=== PATIENT | female | born 1990 | race Two or more races ===

== ENCOUNTER 2025-05-27 18:27 | Inpatient (IN) | payer BC, SELFPAY ==
--- NOTE | ~2025-05-27 | CT_ITS ---
CLINICAL HISTORY: RUQ pain CT abdomen and pelvis with contrast Comparison: None Findings: No consolidation or effusion. The liver is enlarged. The liver appears normal in contour. The gallbladder and solid organs are otherwise within normal limits. No hydronephrosis or hydroureter. No bowel obstruction, pneumoperitoneum, or pneumatosis. Pelvic contents unremarkable. The bladder is minimally distended with fluid, limiting its evaluation. There is borderline bladder wall thickening. Minimal free fluid present within the pelvis. There is dilation of the appendix up to 1.1 cm in diameter of the lower abdomen near the midline, visualized on axial image number 49 of series 3. There is subtle periappendiceal edema. No periappendiceal abscess. No acute fracture visualized. IMPRESSION: 1. Acute appendicitis with dilation of the appendix up to 1.1 cm in diameter at the lower abdomen near the midline. There is subtle periappendiceal edema. No periappendiceal abscess. 2. Mild hepatomegaly. 3. Minimal nonspecific free fluid present within the pelvis, possibly reactive or physiologic in etiology. 4. Borderline bladder wall thickening. This may be related to bladder underdistention. If there is clinical concern for mild cystitis, recommend correlation with urinalysis results for further evaluation. This document has been electronically signed by: Cresencio Mann MD on 05/27/2025 21:20:20
[2025-05-27 18:51] VITALS: BP 130/74; PULSE 60; RESP 16; TEMP 36.7; O2SAT 100; BMI 24.6
--- NOTE | 2025-05-27 18:51 | ED.GENADULT ---
HPI - General Adult General Chief complaint: Abdominal Pain Stated complaint: N/V chills, abd pain Time Seen by Provider: 05/27/25 19:39 Source: patient Limitations: no limitations History of Present Illness ED Provider: Aleyda Cain PA-C HPI narrative: 34-year-old female who is otherwise healthy, with no prior abdominal surgeries, presents with the abdominal pain since this afternoon. Patient states her pain is over mid right abdomen described as a ?squeezing sensation?. The pain is nonradiating and constant. Associated nausea vomiting and loose stool. Denies fever. Denies postprandial symptoms. No sick contacts with similar symptoms. Denies recent travel, hospitalization, or use of antibiotics. Related Data Home Medications ?Medication ?Instructions ?Recorded ?Confirmed sertraline 50 mg tablet 75 mg PO BEDTIME 05/27/25 05/27/25 Allergies Allergy/AdvReac Type Severity Reaction Status Date / Time No Known Allergies Allergy Verified 05/27/25 18:54 PMFSH Social History Social History Unable to assess alcohol history related to: Unknown Smoked in Last 30 Days: No Use of substances other than those prescribed or required for medical reasons: Unknown Advance Directives: No Advance Directives Information Provided: Yes Patient : No Physical Exam ED Vital Signs: Vital Signs - 24 hr 05/27/25 18:51 05/27/25 21:55 Temperature 98.0 F Pulse Rate 60 77 Respiratory Rate 16 16 Blood Pressure 130/74 125/81 Pulse Oximetry 100 99 Oxygen Delivery Method Room Air Room Air BMI result Body Mass Index 24.6 Course Course Course Narrative: This is an RME performed by Yareli Baer CNP: Additional HPI, ROS, PE not included below will be deferred to primary provider. Patient is a 34-year-old female who presents emergency department for evaluation of diffuse upper abdominal pain and vomiting, pain constant in nature over the past 6 hours. Admits to a history of similar symptoms in the past, to have a gallbladder polyp. States that after vomiting the pain typically subsides but has not done so this time. Plan: Serum labs, urinalysis, hCG Consultations Consultation #1: per Dr. Parmar .... He is admitting the patient, no further recommendation Time: 21:42 Medications Administered Discontinued Medications Generic Name Dose Route Start Last Admin Trade Name Freq PRN Reason Stop Dose Admin Ceftriaxone Sodium 2 gm 05/27/25 21:23 05/27/25 21:44 Ceftriaxone Sodium 2 Gm Vial IVPUSH 05/27/25 21:24 2 gm ONCE ONE Administration Dicyclomine HCl 20 mg 05/27/25 19:56 05/27/25 20:08 Dicyclomine Hcl 10 Mg Capsule PO 05/27/25 19:57 20 mg ONCE ONE Administration Sodium Chloride 1,000 mls @ 999 mls/hr 05/27/25 19:45 05/27/25 21:18 Ns IV 05/27/25 20:45 Infused .Q1H1M NABEEL Infusion Metronidazole 500 mg in 100 mls @ 100 mls/hr 05/27/25 21:23 05/27/25 21:53 Flagyl IV 05/27/25 22:22 100 mls/hr ONCE ONE Administration Iohexol 100 ml 05/27/25 20:19 05/27/25 20:20 Iohexol 350 Mg/Ml 100 Ml Infus..Btl IV 05/27/25 20:20 85 ml ONCE ONE Administration Morphine Sulfate 4 mg 05/27/25 21:27 05/27/25 21:52 Morphine Sulfate 4 Mg/Ml Cartridge IVPUSH 05/27/25 21:28 4 mg ONCE ONE Administration Protocol Ondansetron HCl 4 mg 05/27/25 19:40 05/27/25 19:58 Ondansetron Hcl 4 Mg/2 Ml Vial IVPUSH 05/27/25 19:41 4 mg ONCE ONE Administration Sucralfate 1 gm 05/27/25 19:56 05/27/25 20:10 Sucralfate Oral Suspension 1 Gm/10 Ml Oral.Susp PO 05/27/25 19:57 1 gm ONCE ONE Administration Medical Decision Making Medical Decision Making MDM Narrative: 34-year-old female who is otherwise healthy, with no prior abdominal surgeries, presents with the abdominal pain since this afternoon. Patient states her pain is over mid right abdomen described as a ?squeezing sensation?. The pain is nonradiating and constant. Associated nausea vomiting and loose stool. Denies fever. Denies postprandial symptoms. No sick contacts with similar symptoms. Denies recent travel, hospitalization, or use of antibiotics. No chronic issues History: Per patient I have considered the following differential diagnoses: Traveler's diarrhea, sigmoid diverticulitis, appendicitis, C diff, biliary colic, cholecystitis, viral gastroenteritis Plan: The patient has pain seems most prominent right upper to mid abdomen, given right-sided symptoms, thought about underlying biliary pathology, however she does not have any postprandial symptoms in her LFTs are normal. Her torso is short, could be appendicitis versus sigmoid diverticulitis. She has a significant leukocytosis, I am scanning her abdomen. Giving fluid Zofran. This could be simply viral gastroenteritis, although she has no sick contacts with similar symptoms. We will add Carafate and dicyclomine. She has not a risk factors for traveler's diarrhea or C diff. I have independently reviewed the following tests: Labs: Leukocytosis of 17.3, with left shift, not anemic, no electrolyte abnormalities, not , urine not infected CT abdomen and pelvis:IMPRESSION: 1. Acute appendicitis with dilation of the appendix up to 1.1 cm in diameter at the lower abdomen near the midline. There is subtle periappendiceal edema. No periappendiceal abscess. 2. Mild hepatomegaly. 3. Minimal nonspecific free fluid present within the pelvis, possibly reactive or physiologic in etiology. 4. Borderline bladder wall thickening. This may be related to bladder underdistention. If there is clinical concern for mild cystitis, recommend correlation with urinalysis results for further evaluation. Lab Data 05/27/25 19:06 05/27/25 19:06 Labs: Lab Results 05/27/25 05/27/25 Range/Units 19:06 19:49 WBC 17.3 H (4.8-10.8) X10*3/uL RBC 5.69 H (4.20-5.50) X10*6/uL Hgb 12.2 (12.0-16.0) g/dl Hct 37.6 (37.0-47.0) % MCV 66.1 L (80.0-98.0) fL MCH 21.4 L (27.0-33.0) pg MCHC 32.4 (31.0-35.0) g/dl RDW 15.6 (11.0-16.0) % Plt Count 272 (160-400) X10*3/uL MPV Not Reportable Immature Gran % (Auto) Cancelled Neut % (Auto) Cancelled Lymph % (Auto) Cancelled [place] % (Auto) Cancelled Eos % (Auto) Cancelled Baso % (Auto) Cancelled Lymph # (Auto) Cancelled [place] # (Auto) Cancelled Eos # (Auto) Cancelled Baso # (Auto) Cancelled Abs Immat Gran (auto) Cancelled Absolute Neuts (auto) Cancelled Absolute Nucleated RBC 0.000 (0.0-0.012) X10*3/uL Nucleated RBC % (auto) 0.0 (0.0-0.2) /100WBC Neutrophils % (Manual) 92 H (45-73) % Band Neutrophils % 5 (3-5) % Lymphocytes % (Manual) 1 L (20-40) % Monocytes % (Manual) 2 (2-11) % Abs Neuts (Manual) 16.8 H (2.0-8.3) X10*3/uL Lymphocytes # (Manual) 0.2 L (1.2-4.9) X10*3/uL Monocytes # (Manual) 0.3 (0.1-1.2) X10*3/uL Platelet Estimate NORMAL (NORMAL) Plt Morphology Comment NORMAL RBC Morphology NOTED Microcytosis 1+ (5-14) /OIF Schistocytes 1+ (0-2) /OIF Sodium 138 (135-145) mmol/L Potassium 4.5 (3.3-5.1) mmol/L Chloride 106 (96-108) mmol/L Carbon Dioxide 21 L (22-29) mmol/L Anion Gap 16 (12-20) BUN 13 (9-16) mg/dL Creatinine 0.58 (0.5-1.4) mg/dL Estim Creat Clear Calc 112.7 Estimated GFR > 60 Random Glucose 125 H (60-115) mg/dL Calcium 9.5 (8.4-10.2) mg/dL Total Bilirubin 0.4 (0.0-1.0) mg/dL AST 36 H (5-31) U/L ALT 21 (0-31) U/L Alkaline Phosphatase 68 (39-117) U/L Total Protein 8.2 H (6.5-8.0) g/dL Albumin 4.3 (3.5-5.0) g/dL Lipase 11 (8-78) U/L Beta HCG, Quant < 2 mIU/mL Urine Color Yellow Urine Appearance Cloudy Urine pH 8.0 (5.0-9.0) Ur Specific [place] >= 1.030 H (1.005-1.025) Urine Protein 30 (1+) H (Neg-Trace) mg/dL Urine Glucose (UA) Negative (Negative) mg/dL Urine Ketones 80 (Negative) mg/dL Urine Blood Negative (Negative) Urine Nitrite Negative (Negative) Ur Leukocyte Esterase Negative (Negative) Urine RBC 11-20 H (0-2) /HPF Urine WBC 0-5 (0-5) /HPF Ur Squamous Epith Cells 3-5 (0-2) /HPF Urine Bacteria 2+ (None Seen) Hyaline Casts 6-10 (0-2) /LPF Critical Care Time Critical Care Time Critical Care Time: Yes Total Critical Care Time: 30 Attestation: Trip Cain PA-C have personally performed 30 minutes of critical care time not including lines and procedures; IV analgesia and antiemetic, appendicitis, IV antibiotic therapy, surgical consult Discharge Plan Discharge Clinical Impression: Acute appendicitis Patient Disposition: Admitted As Inpatient
[2025-05-27 19:17] LABS: Hematocrit 37.6 % (37.0-47.0); Hemoglobin 12.2 g/dl (12.0-16.0); Mean Corpuscular HGB Conc 32.4 g/dl (31.0-35.0); Mean Corpuscular Hemoglobin 21.4 pg (27.0-33.0); Mean Corpuscular Volume 66.1 fL (80.0-98.0); NRBC Abs Auto 0.000 X10*3/uL (0.0-0.012); NRBC Pct Auto 0.0 /100WBC (0.0-0.2); PLT CLUMP 1; Red Blood Count 5.69 X10*6/uL (4.20-5.50)
[2025-05-27 19:18] LABS: WBC ABN SCTR FOR CBC 1
[2025-05-27 19:27] LABS: Alanine Aminotransferase 21 U/L (0-31); Albumin Level 4.3 g/dL (3.5-5.0); Alkaline Phosphatase 68 U/L (39-117); Anion Gap 16 (12-20); Aspartate Amino Transferase 36 U/L (5-31); Blood Urea Nitrogen 13 mg/dL (9-16); Calcium 9.5 mg/dL (8.4-10.2); Carbon Dioxide 21 mmol/L (22-29); Chloride 106 mmol/L (96-108); Creatinine Clr Calc Pharmacy 112.7; Estimated Glomerular Filt Rate > 60; Lipase 11 U/L (8-78); Potassium 4.5 mmol/L (3.3-5.1); Sodium 138 mmol/L (135-145); Total Protein 8.2 g/dL (6.5-8.0)
[2025-05-27 19:38] LABS: Band Neutrophils Percent 5 % (3-5); Lymphocytes Percent Manual 1 % (20-40); Monocytes Percent Manual 2 % (2-11); Neutrophils Percent Manual 92 % (45-73); RBC Morphology NOTED; Schistocytes 1+ (0-2) /OIF
[2025-05-27 19:39] LABS: Microcytosis 1+ (5-14) /OIF
--- OUTSIDE RECORDS SUMMARY | 2025-05-27 19:42 | XMS_ITS | Clinical Summary ---
Author Organization [facility] Address [address] [place] [phone] Phone Care Team Providers Care Insurance Verification Specialist Name Role Phone Dilan Choi MD Primary Care Provider [phone] Dilan Choi MD Unavailable [phone] Allergies No known active allergies Medications levonorgestrel-eth inyl estradiol (AVIANE,ALESSE,LES MAXIMO) 0.1-0.02 mg per tabletIndications: Counseling for control, oral contraceptives Take 1 tablet by mouth daily. 84 tablet 3 4 Active triamcinolone acetonide 0.1 % creamIndications:I ntrinsic atopic dermatitis Apply topically 2 (two) times a day. 60 g 2 4 Active clonazePAM (KLONOPIN) 0.5 MG disintegrating tabletIndications: Recurrent major depressive disorder, in full remission Take 1 tablet (0.5 mg total) by mouth 2 (two) times a day as needed for anxiety. 15 tablet 5 Active sertraline (ZOLOFT) 50 MG tabletIndications: Recurrent major depressive disorder, in full remission Take 1 tablet (50 mg total) by mouth daily. 90 tablet 3 5 Active Active Problems Problem Noted Date Diagnosed Date Polyp of gallbladder 09/27/2024 Overview (04/19/2025): Stable, ultrasound March 2025. No further testing recommended. Assessment & Plan (04/19/2025 1:28 PM EDT): Repeat ultrasound is stable. No further testing needed for the polyp. We will check her lipids and blood sugar before her preventive health visit in 6 to 9 months to look for possible causes of fatty liver. Recent LFTs were normal which is reassuring. Beta thalassemia minor 08/23/2024 Assessment & Plan (08/23/2024 5:15 PM EDT): If ever plans to conceive, should have pre-conception counseling. Intrinsic atopic dermatitis 11/09/2023 Assessment & Plan (04/19/2025 1:29 PM EDT): Doing well, continue triamcinolone as needed Assessment & Plan (08/23/2024 5:15 PM EDT): Try avoiding friction to her forearms and use triamcinolone more frequently. Assessment & Plan (02/18/2024 4:07 PM EDT): Well-controlled, continue current medication. Assessment & Plan (12/21/2023 12:24 PM EST): Better with triamcinolone, continue using as needed. Assessment & Plan (11/09/2023 10:23 AM EST): She has done well with triamcinolone in the past. Skin care was reviewed. Use triamcinolone as needed. Counseling for control, oral contraceptive s 11/09/2023 Assessment & Plan (11/09/2023 10:23 AM EST): Restart oral contraceptive. She understands proper use and side effects. She also needs cervical cancer screening and she will schedule appointment with DEMOLITION EXPERT. Recurrent major depressive disorder, in full rem ission 11/09/2023 Overview (11/09/2023): She has done well in the past with sertraline. Infrequently uses clonazepam for anxiety. Assessment & Plan (04/19/2025 1:29 PM EDT): Doing well with current medication. Continue the same. Assessment & Plan (08/23/2024 5:14 PM EDT): Doing very well, continue current medication Assessment & Plan (02/18/2024 4:07 PM EDT): Well-controlled, continue current medication Assessment & Plan (12/21/2023 12:24 PM EST): She is doing much better since increasing dose of sertraline. 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 Will increase dose a little more and see if this improves her sleep. Assessment & Plan (11/09/2023 10:25 AM EST): Restart sertraline, start with 25 mg daily for 1 to 2 weeks then increase to 50 mg daily. She can continue using clonazepam infrequently. She understands the risk of addiction, tolerance, and the abuse potential. I also reminded her of the potential for overdose. Resolved Problems Problem Noted Date Diagnosed Date Resolved Date Nausea vomiting and diarrhea 07/26/2024 04/19/2025 Assessment & Plan (08/23/2024 5:14 PM EDT): Doing much better. May have been viral. Gallbladder disease is possible. If symptoms recur, she should proceed with abdominal ultrasound. Assessment & Plan (07/26/2024 2:31 PM EDT): Two episodes of diarrhea, nausea and vomiting over the past 3 weeks. I asked her to work on reducing her intake of fatty foods, processed foods, and fried products. Ensure adequate dietary fiber and water intake. We will check labs today. I agreed to check a RUQ ultrasound at her request. She has a follow up appointment with Dr. Rosario on 08/23 and should track her symptoms until that time. Call with another episode. To the ER with intractable vomiting and inability to tolerate sips of fluids. She agrees. Encounters Date Type Department Care Team Description 04/19/2025 1:15 PM EDT Office Visit [address] [place] [address] Dilan Choi MD Recurrent major depressive disorder, in full remission (Primary Dx); Polyp of gallbladder; Encounter for preventive health examination; Intrinsic atopic dermatitis 04/12/2025 [address]ill [facility] [address] [place] [address] Dilan Choi MD Medication Refill 03/26/2025 8:38 AM EDT - 03/26/2025 11:59 PM EDT Hospital Encounter [facility] [address] [place] [address] Dilan Choi MD Discharge Disposition: Home or Self Care from Last 3 Months Immunizations Immunization Administration Dates Next Due HPV, unspecified formulation 04/13/2008 Influenza, Unspecified Formulation 08/25/2011 Tdap 11/02/2011 Family History Medical History Relation Comments No Known Problems Brother No Known Problems Father Diabetes Mother Relation Status Comments Brother Father Mother Paternal Grandmother Social History Tobacco Use Types Packs/Day Years Used Date Smoking Tobacco: Never Passive Smoke Exposure: Never Smokeless Tobacco: Never Tobacco Cessation:Counseling Given: Not Answered Alcohol Use Standard Drinks/Week Comments Yes 2 (1 standard drink = 0.6 oz pur e alcohol) Education Answer Date Recorded Are you interested in more education? Not on kristina e 10/08/2023 Are you concerned about learning? Not on file 10/08/2023 No 10/08/2023 No 10/08/2023 Digital Access Answer Date Recorded No 10/08/2023 No 10/08/2023 Reliable internet access at home? Not on file 10/08/2023 Device with a working camera? 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 [employer] Not on file Not on file No t on file Last Filed Vital Signs Vital Sign Reading Time Taken Comments Blood Pressure 116/75 04/19/2025 1:02 PM EDT Pulse 77 04/19/2025 1:02 PM EDT Temperature 36.7 C (98 F) 04/19/2025 1:02 PM EDT Respiratory Rate - - Oxygen Saturation 100% 04/19/2025 1:02 PM EDT Inhaled Oxygen Concentration - - Weight 58.6 kg (129 lb 3.2 oz) 04/19/2025 1:02 P M EDT Height 156.2 cm (5' 1.5 ) 04/19/2025 1:02 PM EDT Body Mass Index 24.02 04/19/2025 1:02 PM EDT Plan of Treatment Upcoming Encounters Date Type Department Care Team (Late st Contact Info) Description 12/12/2025 1:00 PM EST Office Visit [facility] [address] [place] [address] [place] [address] Dilan Choi MD [address] [facility] [place] [address] [email or web address] Health Maintenance Due Date Last Done Comments DEPRESSION SCREENING 2002 Adult Td,Tdap Booster 11/02/2021 11/02/2011 COVID-19 VACCINE (3 - 2023-2 5 season) 2024 03/09/2021, 02/09/2021 PAP SMEAR 11/16/2026 11/16/2023 SMOKING STATUS SCREENING (On ce After 26 Yrs) Completed 04/19/2025 HEPATITIS A VACCINES Aged Out No long er eligible based on patient's age to complete this topic HIB VACCINES Aged Out No longer eligi ble based on patient's age to complete this topic MENINGOCOCCAL VACCINES (ACWY) Aged Out No longer eligible based on patient's age to complete this topic MENINGOCOCCAL VACCINES (B) Aged Out N o longer eligible based on patient's age to complete this topic PNEUMOCOCCAL VACCINES (0-49 years) Aged Out No longer eligible b ased on patient's age to complete this topic Medical Devices Not on file Procedures Procedure Name Priority Date/Time Associated Diagnosis Comments US ABDOMEN LIMITED RIGHT UPPER QUADRANT Routine 03/26/2025 9:23 AM EDT Polyp of gallbladder PAP TEST Routine 11/16/2023 12:00 AM EST from Last 3 Months or Most Recently Relevant to Health Maintenance Results * US ABDOMEN LIMITED RIGHT UPPER QUADRANT (03/26/2025 9:23 AM EDT) Anatomical Region Laterality Modality Abdomen Ultrasound 03/26/2025 11:2 6 AM EDT Impressions 03/26/2025 11:29 AM EDT Redemonstration of a 3 mm gallbladder polyp. No further imaging follow-up recommended per current guidelines (Radiology 202; 305:277-289). Increased echogenicity of the hepatic parenchyma. This is a nonspecific finding indicating diffuse hepatocellular disease and limiting the sensitivity of this exam. In the correct clinical scenario, this commonly represents fatty liver. Within the limitations of this study, there is no sonographic evidence for focal hepatic lesion. Narrative 03/26/2025 11:29 AM EDT US ABDOMEN LIMITED RIGHT UPPER QUADRANT Referring clinician's provided indication for this examination in [facility]: polyp of gallbladder TECHNIQUE: US Abdominal limited right upper quadrant. COMPARISON: US ABDOMEN LIMITED RIGHT UPPER QUADRANT FINDINGS: Liver: Normal. There is increased echogenicity of the hepatic parenchyma. No focal hepatic lesions demonstrated sonographically. Main Portal Vein: Patent with normal direction of flow. Gallbladder: There is redemonstration of a non-shadowing echogenic focus adjacent to the gallbladder wall measuring 3 mm. No gallstones or gallbladder wall thickening. Beyer's Sign: Negative. Biliary: No intrahepatic or extrahepatic biliary ductal dilatation. The common bile duct measures 2 mm. Procedure Note Ale Anand MD - 03/26/2025 US ABDOMEN LIMITED RIGHT UPPER QUADRANT Referring clinician's provided indication for this examination in [facility]:polyp of gallbladder TECHNIQUE: US Abdominal limited right upper quadrant. COMPARISON: US ABDOMEN LIMITED RIGHT UPPER QUADRANT FINDINGS: Liver: Normal. There is increased echogenicity of the hepatic parenchyma.No focal hepatic lesions demonstrated sonographically. Main Portal Vein: Patent with normal direction of flow. Gallbladder: There is redemonstration of a non-shadowing echogenic focusadjacent to the gallbladder wall measuring 3 mm. No gallstones orgallbladder wall thickening. Beyer's Sign: Negative. Biliary: No intrahepatic or extrahepatic biliary ductal dilatation. The common bile duct measures 2 mm. IMPRESSION: Redemonstration of a 3 mm gallbladder polyp. No further imaging follow- uprecommended per current guidelines (Radiology 202; 305:277-289). Increased echogenicity of the hepatic parenchyma. This is a nonspecificfinding indicating diffuse hepatocellular disease and limiting thesensitivity of this exam. In the correct clinical scenario, this commonlyrepresents fatty liver. Within the limitations of this study, there is nosonographic evidence for focal hepatic lesion. us Dilan Choi MD IMG US ABDOMEN Final Resu lt * Pap Test (11/16/2023 12:00 AM EST) 11/16/2023 11/17/2023 9:1 4 AM EST Narrative SEE NARRATIVE - 11/19/2023 3:13 [place] [address] Dog Handler Or Trainer: Paula Marinelli MD DEMOLITION EXPERT Cytology Report FINAL DIAGNOSIS A. PAP SMEAR (SUREPATH) CE: SPECIMEN ADEQUACY: Satisfactory for evaluation; transformation zone absent/insufficient. INTERPRETATION: NEGATIVE FOR INTRAEPITHELIAL LESION OR MALIGNANCY. Electronically Signed Out By: JOEY Valenzuela(ASCP) The Pap test is a screening test primarily for squamous cancers and precursors and has associated false-negative and false-positive results. New technologies such as liquid-based preparations may decrease but will not eliminate all false-negative results. Regular sampling and follow-up of unexplained clinical signs and symptoms are recommended to minimize false negative results. PROCEDURES/ADDENDA HPV Testing (Requested) Ordered Date: 11/17/2023 A. PAP SMEAR (SUREPATH) CE: Human Papilloma Virus Test NEGATIVE for high-risk Human Papilloma Virus types 16, 18, 45 and the Other high risk probe set (Includes 31, 33, 35, 39, 51, 52, 56, 58, 59, 66, 68) Note: Testing performed by [employer] Onclarity HR-HPV analysis. Clinical correlation is advised. This HPV test was performed at [facility], [address] [place] [address]. This test has been FDA approved for SurePath cervical cytology specimens. The accuracy and precision of this test for all other specimen sources has been verified in the Cytopathology Laboratory of the [facility] and has not been cleared or approved by the U.S. Food and Drug Administration. Clinical correlation is advised. CLINICAL HISTORY Date of Last Menstrual Period: 10-31-2023 Contraceptive History: BCPs Other Clinical Conditions: Screening Pap SPECIMEN SOURCE A: PAP SMEAR (SUREPATH) CE Patient Name: YELITZA GILLETTE : 1990 (Age: 33) Sex: F Institution: [facility] Location: [facility] Date of Collection: 11/16/2023 Date of Reported: 11/19/2023 15:13 Results to: Angle Patino MD Angle Patino MD CYTOLOGY ORDERABLES Final Result SEE NARRATIVE from Last 3 Months or Most Recently Relevant to Health Maintenance Insurance [facility] OUT OF STATE PPO BLUE [employer] OUT OF STATE PPO BLUE [employer]OSS OUT OF STATE PPO BLUE [employer]OSS OUT OF STATE PPO [facility] STATE PPO Care Teams Insurance Verification Specialist Relationship Specialty Start Date End Date Dilan Choi MD [address] [place] [address], [address] [place] [address] PCP - General Internal Medicine 12/21/23 Dilan Choi MD [address] [place] [address], [address] [place] [address] Insurance Assigned Provider 01/29/24 Additional Source Comments The information contained in this document represents components of the legal health record. It is not the complete legal health record.[facility]
[2025-05-27 19:52] LABS: Lymphocytes Absolute Manual 0.2 X10*3/uL (1.2-4.9); Monocytes Absolute Manual 0.3 X10*3/uL (0.1-1.2); Neutrophils Absolute Manual 16.8 X10*3/uL (2.0-8.3); Platelet Count 272 X10*3/uL (160-400); White Blood Count 17.3 X10*3/uL (4.8-10.8)
--- NOTE | 2025-05-27 19:57 | PC.NURSE ---
UA obtained. IV established, medicated per DEC. DANIEL at bedside for primary eval.
[2025-05-27 20:06] LABS: Appearance Urine Cloudy; Glucose Urine UA Negative (Negative); PH 8.0 (5.0-9.0); Specific Gravity - Urine >= 1.030 (1.005-1.025); UMIC TRIGGER UACC YES
[2025-05-27] MEDS: Sucralfate Oral Suspension 1 GM/10 ML ORAL.SUSP PO (20:10)
--- NOTE | 2025-05-27 20:15 | PC.NURSE ---
Off to CT.
[2025-05-27] MEDS: iohexoL 350 MG/ML 100 ML INFUS..BTL IV (20:20)
--- NOTE | 2025-05-27 21:30 | PC.NURSE ---
DANIEL at bedside discussing CT results.
--- NOTE | 2025-05-27 21:43 | PC.NURSE ---
No Blood Culture orders per provider Payton CAMPBELL.
[2025-05-27] MEDS: metroNIDAZOLE/NS 500 MG/100 ML PIGGYBACK 100 MG IV (21:53)
[2025-05-27 21:55] VITALS: BP 125/81; PULSE 77; RESP 16; O2SAT 99
--- NOTE | 2025-05-27 21:57 | PC.NURSE ---
Medicated per DEC. Pt resting in bed at this time.
--- NOTE | 2025-05-27 22:00 | PC.NURSE ---
2200 Zosyn retimed to 2300 by pharmacy as Flagyl was infusing at this time.
[2025-05-27 23:00] VITALS: BP 120/66; PULSE 62; RESP 16; O2SAT 99
--- NOTE | 2025-05-27 23:00 | PC.NURSE ---
Addendum entered by Susan Khanna RN 05/27/25 23:20: 2nd IV line established. IVF infusing per MAR. Original Note: Medicated per MAR. Pt reporting 1/10 pain at this time.
[2025-05-27] MEDS: Dextrose 5 % and Lactated Ring 1,000 ML 125 ML IVCONT (23:20)
[2025-05-27 23:22] VITALS: BP 101/63; PULSE 68; RESP 16; TEMP 36.9; O2SAT 97
[2025-05-28] VITALS (14 sets, daily range): BP systolic 98–118; BP diastolic 54–71; PULSE 63–88; RESP 12–20; TEMP 36.6–37.7; O2SAT 95–100
[2025-05-28] MEDS: Dextrose 5 % and Lactated Ring 1,000 ML 125 ML IVCONT ×2 (06:59→17:52)
[2025-05-28] MEDS: 0.9 % Sodium Chloride Flush 3 ML SYRINGE IVFLUSH ×2 (07:00→17:52)
--- NOTE | 2025-05-28 07:32 | P.HPGS_ITS ---
History of Present Illness History of Present Illness Date of Service: 05/28/25 Chief complaint: acute appendicitis Narrative: Yelitza Tim is a 34 year old female presenting with complaints of abdominal pain in the right lower quadrant and periumbilical region. Pain was associated with nausea and vomiting which seemed to increase the pain. She previously had similar pain approximately 6 months ago which resolved after vomiting. She denies fever or chills but does report a decreased appetite. There have been no changes in her bowel habits. Her past medical history is significant only for anxiety. She denies any previous abdominal surgeries. She presented to the emergency department and was noted to have an elevated WBC. CT abdomen and pelvis revealed a dilated appendix which traveled to the midline abdomen with inflammatory changes surrounding. There was no free air. There is a small collection of free fluid. Review of Systems Review of Systems: Yes all other systems are reviewed and are negative [facility] Social History Social History Unable to assess alcohol history related to: Unknown Patient Tobacco Use Status: Never used Tobacco Smoked in Last 30 Days: No Use of substances other than those prescribed or required for medical reasons: Unknown Advance Directives: No Advance Directives Information Provided: Yes Nutrition Risks: No Nutritional Risk Patient : No Meds Allergies Allergy/AdvReac Type Severity Reaction Status Date / Time No Known Allergies Allergy Verified 05/27/25 18:54 Active Medications: Current Medications Calcium Carbonate (Calcium Carbonate 750 Mg Tab.Chew) 750 mg PO Q4H PRN PRN Reason: Heartburn Hydromorphone HCl (Hydromorphone Hcl 0.5 Mg/0.5 Ml Syringe) 0.5 mg IVPUSH Q3H PRN; Protocol PRN Reason: Pain, Severe (Pain Scale 7-10) Acetaminophen (Ofirmev) 1,000 mg in 100 mls @ 400 mls/hr IV Q6H PRN PRN Reason: Pain, Mild (Pain Scale 1-3) Last Infusion: 05/27/25 23:06 Dose: Infused Dextrose/Lactated Ringer's (D5lr) 1,000 mls @ 125 mls/hr IVCONT .Q8H [facility] Last Admin: 05/28/25 06:59 Dose: 125 mls/hr Piperacillin Sod/Tazobactam (Sod 3.375 gm/ Sodium Chloride) 50 mls @ 100 mls/hr IV Q6H [facility] Last Infusion: 05/28/25 06:25 Dose: Infused Magnesium Hydroxide (Milk Of Magnesia 30 Ml Oral.Susp) 30 ml PO DAILY PRN PRN Reason: Constipation Melatonin (Melatonin 3 Mg Tablet) 6 mg PO BEDTIME PRN PRN Reason: Insomnia Ondansetron HCl (Ondansetron Hcl 4 Mg/2 Ml Vial) 4 mg IVPUSH QID PRN PRN Reason: Nausea Last Admin: 05/27/25 22:51 Dose: 4 mg Oxycodone HCl (Oxycodone Hcl Immed Release 5 Mg Tablet) 5 mg PO Q6H PRN PRN Reason: Pain, Moderate(Pain Scale 4-6) Sodium Chloride (0.9 % Sodium Chloride Flush 3 Ml Syringe) 3 ml IVFLUSH QSHIFT [facility] Last Admin: 05/28/25 07:00 Dose: 3 ml Home Medications ?Medication ?Instructions ?Recorded ?Confirmed ?Last Taken ?Type sertraline 50 mg tablet 75 mg PO BEDTIME 05/27/2505/21/25 History Physical Exam Vital Signs: Vital Signs: Last Vital Signs Temp 98.5 F 05/28/25 04:01 Pulse 78 05/28/25 07:01 Resp 16 05/28/25 07:01 BP 101/60 05/28/25 07:01 Pulse Ox 100 05/28/25 07:01 O2 Del Method Room Air 05/28/25 07:01 BMI result Body Mass Index 24.6 Const: General: cooperative and no acute distress Nutritional Appearance: well nourished Orientation/consciousness: patient oriented x3 Limitations: no limitations HEENT: Head: Yes normocephalic and Yes atraumatic Ears: hearing grossly normal bilaterally Resp: Effort & Inspection: normal respiratory effort, no audible wheezes, no cough and no respiratory distress Cardio: Jugular venous distension: no JVD GI: Other: Tender in the right lower quadrant and epigastrium without rebound, guarding or rigidity. No abdominal scars or hernias appreciated. Inspection: Yes normal to inspection Skin: Other: Warm, dry, no rash Neuro: General: patient oriented x3 Extrem: General: Yes no clubbing, cyanosis or edema Results Results Labs: Short CBC 05/27/25 Range/Units 19:06 WBC 17.3 H (4.8-10.8) X10*3/uL Hgb 12.2 (12.0-16.0) g/dl Hct 37.6 (37.0-47.0) % Plt Count 272 (160-400) X10*3/uL BMP 05/27/25 19:06 Sodium 138 Potassium 4.5 Chloride 106 Carbon Dioxide 21 L BUN 13 Creatinine 0.58 Calcium 9.5 Liver Function 05/27/25 Range/Units 19:06 Total Bilirubin 0.4 (0.0-1.0) mg/dL AST 36 H (5-31) U/L ALT 21 (0-31) U/L Alkaline Phosphatase 68 (39-117) U/L Albumin 4.3 (3.5-5.0) g/dL Urine 05/27/25 Range/Units 19:49 Urine Color Yellow Urine Appearance Cloudy Urine pH 8.0 (5.0-9.0) Ur Specific [place] >= 1.030 H (1.005-1.025) Urine Protein 30 (1+) H (Neg-Trace) mg/dL Urine Glucose (UA) Negative (Negative) mg/dL Assessment and Plan (1) Acute appendicitis: Qualifiers: Acute appendicitis type: with localized peritonitis Appendicitis gangrene presence: without gangrene Appendicitis perforation presence: without perforation Appendicitis abscess presence: without abscess Qualified Code(s): K35.30 - Acute appendicitis with localized peritonitis, without perforation or gangrene Status: Acute Plan 34-year-old female patient presenting with complaints of right lower quadrant and periumbilical abdominal pain found on workup to have acute appendicitis. We discussed options including nonoperative management with IV antibiotics verses proceeding to a laparoscopic appendectomy. After discussion of the procedure, risks, and alternatives, she consents to a laparoscopic or possible open appendectomy. She has been added onto the operative schedule for today. Quality Stroke Does the patient have a stroke diagnosis?: No VTE Prior VTE?: No VTE Risk Level:: Surgical - low VTE Device Contraindication: N/A - Device Ordered VTE Drug Contraindication: Treatment Not Indicated Procedures Date of Service Date of Service: 05/28/25
--- NOTE | 2025-05-28 07:34 | PHA.MEDREC ---
Pharmacy Consult ? Medication Reconciliation Pharmacy has completed the medication reconciliation. Reviewed med rec done by nursing. matches claims
--- NOTE | 2025-05-28 07:42 | PC.NURSE ---
plan is for patient to have surgery today. She reports no pain at rest but is tender on palpation. no nausea
--- NOTE | 2025-05-28 08:42 | MHC.CM.PN ---
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 NO DME OR VNA SERVICES IN THE HOME.CURRENTLY RESIDES WITH MOTHER, WHO HE DOES NOT WISH TO ASSIGN HCP AGENT. NO HCP ON FILE DESPITE NOTIFICATION THAT ONE IS IN EXPANSE. PATIENT DOES NOT WISH TO ASSIGN AGENT AT THIS TIME.HE IS AWARE OF PLANS FOR O.R. TODAY. CM FOLLOWING FOR ANY DC NEEDS.
--- NOTE | 2025-05-28 09:11 | PC.NURSE ---
report was given to [facility], they anticipate afternoon for procedure, patient to remain NPO
--- NOTE | 2025-05-28 09:13 | MHC.CM.PN ---
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 NO DME OR VNA SERVICES SHE ASSIGNS A NEW HCP. COPY UPLOADED INTO [employer] AND ONE PLACED IN CHART. SHE ANTICIPATES NO NEEDS AT [place]. BROTHER WILL PROVIDE TRANSPORTATION HOME. CM FOLLOWING.
--- NOTE | 2025-05-28 11:25 | PC.NURSE ---
Assumed care of this patient at this time upon transfer to ED overflow. Plan for patient to go to OR today, no time yet. NPO IVF infusing, patient denies pain at this time.
--- NOTE | 2025-05-28 12:28 | MHC.EDTECH ---
Pt brought over from ED24 to OF2. Pt was able to independently ambulate from ER stretcher to hospital bed, vitals obtained, call cagle within reach.
--- NOTE | 2025-05-28 12:34 | PC.NURSE ---
Patient en route to OR at this time
--- NOTE | 2025-05-28 13:51 | P.CONAN_ITS ---
HPI - Anesthesia Eval Consult details Narrative: jose sagastume [facility] Active Problems Active Problems: All Active Problems Acute appendicitis (Acute) Family History Family history of problems with anesthesia: No Surgical History History of Problems with Anesthesia: No Social History Social History Unable to assess alcohol history related to: Unknown Patient Tobacco Use Status: Never used Tobacco Smoked in Last 30 Days: No Use of substances other than those prescribed or required for medical reasons: No Have you been hit, kicked, punched, or otherwise hurt by someone within the past year? If so, by whom?: No Are you DNR?: No Advance Directives: No Advance Directives Information Provided: Yes Nutrition Risks: No Nutritional Risk Patient : No (hcg neg) service: No Meds Allergies Allergy/AdvReac Type Severity Reaction Status Date / Time No Known Allergies Allergy Verified 05/28/25 12:50 Active Medications: Current Medications Calcium Carbonate (Calcium Carbonate 750 Mg Tab.Chew) 750 mg PO Q4H PRN PRN Reason: Heartburn Hydromorphone HCl (Hydromorphone Hcl 0.5 Mg/0.5 Ml Syringe) 0.5 mg IVPUSH Q3H PRN; Protocol PRN Reason: Pain, Severe (Pain Scale 7-10) Acetaminophen (Ofirmev) 1,000 mg in 100 mls @ 400 mls/hr IV Q6H PRN PRN Reason: Pain, Mild (Pain Scale 1-3) Last Infusion: 05/28/25 10:05 Dose: Infused Dextrose/Lactated Ringer's (D5lr) 1,000 mls @ 125 mls/hr IVCONT .Q8H [facility] Last Admin: 05/28/25 06:59 Dose: 125 mls/hr Piperacillin Sod/Tazobactam (Sod 3.375 gm/ Sodium Chloride) 50 mls @ 100 mls/hr IV Q6H [facility] Last Infusion: 05/28/25 11:45 Dose: Infused Magnesium Hydroxide (Milk Of Magnesia 30 Ml Oral.Susp) 30 ml PO DAILY PRN PRN Reason: Constipation Melatonin (Melatonin 3 Mg Tablet) 6 mg PO BEDTIME PRN PRN Reason: Insomnia Ondansetron HCl (Ondansetron Hcl 4 Mg/2 Ml Vial) 4 mg IVPUSH QID PRN PRN Reason: Nausea Last Admin: 05/27/25 22:51 Dose: 4 mg Oxycodone HCl (Oxycodone Hcl Immed Release 5 Mg Tablet) 5 mg PO Q6H PRN PRN Reason: Pain, Moderate(Pain Scale 4-6) Sodium Chloride (0.9 % Sodium Chloride Flush 3 Ml Syringe) 3 ml IVFLUSH QSHIFT [facility] Last Admin: 05/28/25 07:00 Dose: 3 ml Home Medications ?Medication ?Instructions ?Recorded ?Confirmed ?Last Taken ?Type sertraline 50 mg tablet 75 mg PO BEDTIME 05/27/2505/21/25 History Exam Height,Weight and Vital Signs: Height 5 ft 1 in Weight 58.967 kg Last Vital Signs Temp 99.8 F 05/28/25 12:50 Pulse 73 05/28/25 12:50 Resp 16 05/28/25 12:50 BP 104/69 05/28/25 12:50 Pulse Ox 99 05/28/25 12:50 O2 Del Method Room Air 05/28/25 12:50 Pertinent Lab Results Pertinent Lab Results: Laboratory Tests 05/27/25 05/27/25 19:06 19:49 WBC 17.3 H RBC 5.69 H Hgb 12.2 Hct 37.6 MCV 66.1 L MCH 21.4 L MCHC 32.4 RDW 15.6 Plt Count 272 MPV Not Reportable Immature Gran % (Auto) Cancelled Neut % (Auto) Cancelled Lymph % (Auto) Cancelled [place] % (Auto) Cancelled Eos % (Auto) Cancelled Baso % (Auto) Cancelled Lymph # (Auto) Cancelled [place] # (Auto) Cancelled Eos # (Auto) Cancelled Baso # (Auto) Cancelled Abs Immat Gran (auto) Cancelled Absolute Neuts (auto) Cancelled Absolute Nucleated RBC 0.000 Nucleated RBC % (auto) 0.0 Neutrophils % (Manual) 92 H Band Neutrophils % 5 Lymphocytes % (Manual) 1 L Monocytes % (Manual) 2 Abs Neuts (Manual) 16.8 H Lymphocytes # (Manual) 0.2 L Monocytes # (Manual) 0.3 Platelet Estimate NORMAL Plt Morphology Comment NORMAL RBC Morphology NOTED Microcytosis 1+ (5-14) Schistocytes 1+ (0-2) Sodium 138 Potassium 4.5 Chloride 106 Carbon Dioxide 21 L Anion Gap 16 BUN 13 Creatinine 0.58 Estim Creat Clear Calc 112.7 Estimated GFR > 60 Random Glucose 125 H Calcium 9.5 Total Bilirubin 0.4 AST 36 H ALT 21 Alkaline Phosphatase 68 Total Protein 8.2 H Albumin 4.3 Lipase 11 Beta HCG, Quant < 2 Urine Color Yellow Urine Appearance Cloudy Urine pH 8.0 Ur Specific [place] >= 1.030 H Urine Protein 30 (1+) H Urine Glucose (UA) Negative Urine Ketones 80 Urine Blood Negative Urine Nitrite Negative Ur Leukocyte Esterase Negative Urine RBC 11-20 H Urine WBC 0-5 Ur Squamous Epith Cells 3-5 Urine Bacteria 2+ Hyaline Casts 6-10 Airway Mallampati Class: II TM Dist: >3cm Neck ROM: Full Heart: rrr Lungs: cta Assessment and Plan Assessment Anesthesia Assessment: Anesthesia Plan Discussed Final Anesthetic Review Family History of Problems with Anesthesia: No History of Problems with Anesthesia: No NPO: Yes ASA Class: II Final Preanesthetic Review: No Changes in Pt Med Stat, Meds/Allgs Chart Reviewed, Consent Obtained/Reviewed and Anes Risks/Benef Reviewed Patient Risk: Low Procedure Risk: Intermediate Anesthetic Plan Anesthetic Plan: GA Disposition: Standard PACU
--- NOTE | 2025-05-28 14:06 | PC.NURSE ---
Report to Inna RN
--- NOTE | 2025-05-28 15:57 | P.OP_ITS ---
Operative Note Operative Note Date of Service: 05/28/25 Narrative: Preoperative diagnosis: Acute appendicitis Postoperative diagnosis: Same Procedure: Laparoscopic appendectomy Surgeon: Edmundo Parmar MD Production Truck Driver: Mikal Wei PA-C, PATRIC Craig Anesthesia: General endotracheal Indications for procedure: 34-year-old female patient presenting with complaints of abdominal pain in the right lower quadrant found on CT to have dilated appendix consistent with acute appendicitis Operative findings: Acutely inflamed and thickened appendix with surrounding phlegmon. No abscess or perforation Specimen: Appendix Estimated blood loss: Less than 2 mL Complications: None Procedure details: Patient was brought to the OR and placed in a supine position. After administering general anesthesia the patient's abdomen was prepped with ChloraPrep and draped in a sterile fashion. A surgical time-out was called and consent confirmed. Patient received preoperative antibiotics and Venodyne boots were in place. Local anesthesia consisting of 0.5% Sensorcaine with epinephrine was infiltrated in periumbilical region. A 5 mm incision was made below the umbilicus and carried down through subcutaneous tissue. A Veress needle was then inserted while elevating abdominal cavity with towel clips. After a positive drop test the abdomen was insufflated to a pressure of 15 mm of mercury. The Veress needle was removed and a 5 mm trocar inserted. The camera was then inserted in the abdomen explored. A 2nd 5 mm trocars placed in the lower midline. A 12 mm trocar was then placed in the left lower quadrant. The patient was then placed in a Trendelenburg position and rotated to the left. The appendix was identified in the right lower quadrant and brought up using blunt dissecting clamps. The mesentery of the appendix was then divided using the LigaSure. The appendiceal artery was cauterized and divided using the LigaSure. Dissection was continued down to the base of the cecum. An Endo-DIALLO stapler with a purple reload was then used to divide the appendix at the base with the cecum. The appendix was then placed in Endo-Catch bag and brought out through the left lower quadrant incision. The abdomen was then irrigated with saline solution and suctioned dry. Wounds were checked for hemostasis. CO2 was then evacuated from the abdominal cavity and all trocars removed. Fascia was closed in the left lower quadrant incision using a [id number] 0 Polysorb suture. Skin was closed at all incisions using a subcuticular 4-0 Polysorb suture. Steri-Strips 2 x 2 gauze and Tegaderm were then applied. The patient tolerated the procedure well. Sponge, instrument, needle counts reported as correct. The patient was transferred to PACU in stable condition.
[2025-05-28] MEDS: oxyCODONE HCl Immed Release 5 MG TABLET PO (17:51)
--- NOTE | 2025-05-28 19:15 | PC.NURSE ---
Pt ambulated to BR to void with standby assist. 3 small dressings to abdomen CDI. Abdomen tender, medicated with oxycodone per DEC. Tolerated dinner without n/v
[2025-05-29] MEDS: Dextrose 5 % and Lactated Ring 1,000 ML 125 ML IVCONT (00:47)
[2025-05-29 06:10] LABS: MANUAL DIFF FLAG NO
--- NOTE | 2025-05-29 06:51 | P.PNGS_ITS ---
Subjective Subjective Date of Service: 05/29/25 <[facility] Last Filed: 05/29/25 07:08> 05/29/25 <Mikal Wei PA-C - Last Filed: 05/29/25 07:56> Interval history: Patient is a 34 yof s/p laparoscopic appendectomy POD1. Upon room entry, patient appeared to be resting comfortably in bed. Patient states she is doing well, has been ambulating to and from the bathroom, eating regular diet w/o N/V, passing gas, no BM. She states she is in 3/10 pain at rest, slightly worse when ambulating, but is tolerable <Merged With [facility] Last Filed: 05/29/25 07:08> Physical Exam 2 Vital Signs: Vital Signs: Last Vital Signs Temp 99.0 F 05/28/25 19:46 Pulse 79 05/28/25 19:46 Resp 18 05/28/25 19:46 BP 107/58 L 05/28/25 19:46 Pulse Ox 97 05/28/25 19:46 O2 Del Method Room Air 05/28/25 19:46 BMI result Body Mass Index 24.6 <Merged With [facility] Last Filed: 05/29/25 07:08> Const: General: comfortable, no acute distress, alert and awake <Merged With [facility] Last Filed: 05/29/25 07:08> Orientation/consciousness: patient oriented x3 <Merged With [facility] Last Filed: 05/29/25 07:08> Resp: Effort & Inspection: normal respiratory effort <Merged With [facility] Last Filed: 05/29/25 07:08> GI: Other: Dressings clean, dry, no evidence of bloody or purulent drainage noted on the external dressing. <Merged With [facility] Last Filed: 05/29/25 07:08> Inspection: No Abdominal wall edema and No distended <Merged With [facility] Last Filed: 05/29/25 07:08> Palpation (GI): Soft to palpation, Tenderness to palpation present (GI), no guarding and not rigid <Merged With [facility] Last Filed: 05/29/25 07:08> Palpation (GI): Tenderness to palpation present (GI) (incisional ) <Mikal Wei PA-C - Last Filed: 05/29/25 07:56> Percussion: Yes normal to percussion <Noemi Sanchez - Last Filed: 05/29/25 07:08> Neuro: General: patient oriented x3 <Noemi Sanchez - Last Filed: 05/29/25 07:08> Objective Data Active Medications Calcium Carbonate (Calcium Carbonate 750 Mg Tab.Chew) 750 mg PO Q4H PRN PRN Reason: Heartburn Hydromorphone HCl (Hydromorphone Hcl 0.5 Mg/0.5 Ml Syringe) 0.5 mg IVPUSH Q3H PRN; Protocol PRN Reason: Pain, Severe (Pain Scale 7-10) Acetaminophen (Ofirmev) 1,000 mg in 100 mls @ 400 mls/hr IV Q6H PRN PRN Reason: Pain, Mild (Pain Scale 1-3) Last Infusion: 05/28/25 21:18 Dose: Infused Documented By: SURINDER Dextrose/Lactated Ringer's (D5lr) 1,000 mls @ 125 mls/hr IVCONT .Q8H [facility] Last Admin: 05/29/25 00:47 Dose: 125 mls/hr Documented By: SURINDER Magnesium Hydroxide (Milk Of Magnesia 30 Ml Oral.Susp) 30 ml PO DAILY PRN PRN Reason: Constipation Melatonin (Melatonin 3 Mg Tablet) 6 mg PO BEDTIME PRN PRN Reason: Insomnia Ondansetron HCl (Ondansetron Hcl 4 Mg/2 Ml Vial) 4 mg IVPUSH QID PRN PRN Reason: Nausea Last Admin: 05/27/25 22:51 Dose: 4 mg Documented By: JEFF Oxycodone HCl (Oxycodone Hcl Immed Release 5 Mg Tablet) 5 mg PO Q6H PRN PRN Reason: Pain, Moderate(Pain Scale 4-6) Last Admin: 05/28/25 17:51 Dose: 5 mg Documented By: SANDY Sertraline HCl (Sertraline Hcl 25 Mg Tablet) 75 mg PO BEDTIME [facility] Last Admin: 05/28/25 20:57 Dose: 75 mg Documented By: SURINDER Sodium Chloride (0.9 % Sodium Chloride Flush 3 Ml Syringe) [facility] Last Admin: 05/28/25 20:57 Dose: Not Given Documented By: SURINDER Non-Admin Reason: IV Running <Noemi Sanchez - Last Filed: 05/29/25 07:08> Labs CBC & Chem 7: 05/29/25 05:36 05/27/25 19:06 <Noemi Zuleta - Last Filed: 05/29/25 07:08> Procedures Date of Service Date of Service: 05/29/25 <Noemi Sanchez - Last Filed: 05/29/25 07:08> 05/29/25 <Mikal Wei PA-C - Last Filed: 05/29/25 07:56> Progress Note: A&P Assessment and plan (1) S/P laparoscopic appendectomy: Status: Acute <Noemi Sanchez Filed: 05/29/25 07:08> Assessment and Plan: Patient is a 34yof s/p laparoscopic appendectomy d/t acute appendicitis, POD1. She is doing well, tolerating diet w/o N/V, self ambulating, using spirometry. Vitals are stable, slight drop in H/H expected given procedure. Patient is expected to d/c home today. Pain control Encouraged ambulation as tolerated Continue spirometry <Noeim Sanchez Last Filed: 05/29/25 07:08> Patient is a 34yof s/p laparoscopic appendectomy d/t acute appendicitis, POD1. She is doing well, tolerating diet w/o N/V, self ambulating, using spirometry. Vitals are stable, slight drop in H/H expected given procedure. Patient is expected to d/c home today. Pain control Encouraged ambulation as tolerated Continue spirometry patient seen and examined independently. i agree with the above assessment and plan. Patients abdomen is soft, appropriate tenderness around incision site. Will discharge patient home this morning. Patient agreeable to plan <Mikal Wei PA-C - Last Filed: 05/29/25 07:56> Time Spent With Patient Time: Total time managing care of this patient today ____ minutes. <Noemi Last Filed: 05/29/25 07:08> Quality Stroke Does the patient have a stroke diagnosis?: No <Noemi Sanchez - Last Filed: 05/29/25 07:08> VTE Prior VTE?: No <Noemi Zuleta Last Filed: 05/29/25 07:08> VTE Risk Level:: Surgical - low <Noemi Sanchez - Last Filed: 05/29/25 07:08> VTE Device Contraindication: N/A - Device Ordered <Noemi Sanchez - Last Filed: 05/29/25 07:08> VTE Drug Contraindication: Treatment Not Indicated <Noemi Sanchez - Last Filed: 05/29/25 07:08>
[2025-05-29 06:53] LABS: Hematocrit 30.4 % (37.0-47.0); Hemoglobin 9.6 g/dl (12.0-16.0); Imm Gran Abs Auto 0.05 X10*3/uL (0.00-0.03); Imm Gran Pct Auto 0.4 % (0.0-0.4); Lymphocytes Absolute Auto 1.7 X10*3/uL (1.2-4.9); Mean Corpuscular HGB Conc 31.6 g/dl (31.0-35.0); Mean Corpuscular Hemoglobin 21.4 pg (27.0-33.0); Mean Corpuscular Volume 67.7 fL (80.0-98.0); NRBC Abs Auto 0.000 X10*3/uL (0.0-0.012); NRBC Pct Auto 0.0 /100WBC (0.0-0.2); Platelet Count 266 X10*3/uL (160-400); Red Blood Count 4.49 X10*6/uL (4.20-5.50); White Blood Count 13.5 X10*3/uL (4.8-10.8)
[2025-05-29 07:13] VITALS: BP 124/71; PULSE 62; RESP 12; TEMP 37.1; O2SAT 97
[2025-05-29] MEDS: 0.9 % Sodium Chloride Flush 3 ML SYRINGE IVFLUSH (08:05)
--- NOTE | 2025-05-29 08:30 | MHC.CM.PN ---
pt dcd home self care
--- NOTE | 2025-05-29 08:51 | HO.POSTANES ---
Post Anesthesia Evaluation Post Anesthesia Evaluation Date of Service: 05/29/25 Vital Signs: Vital Signs Temp Pulse Resp BP Pulse Ox O2 Del Method 05/29/25 07:13 98.7 F 62 12 124/71 97 Room Air Anesthesia: General Mental Status: Awake Pain Control: Satisfactory Nausea/Vomiting: None Hydration: Adequate Anesthesia-Related Issues: No Anes. Related Issues
[2025-05-29 09:53] VITALS: BP 128/74; PULSE 71; RESP 14; TEMP 36.8; O2SAT 98
--- NOTE | 2025-05-30 09:25 | PM.DS ---
DS: Providers Provider Date of Service: 05/29/25 Date of admission: 05/27/25 21:57 Date of discharge: 05/29/25 Primary care physician: Dilan Choi MD Admitting clinician: Edmundo Parmar Attending physician on discharge: Edmundo Parmar DS: Diagnosis Discharge Diagnosis (1) S/P laparoscopic appendectomy: Status: Acute DS: Summary Hospital Course Hospital Course: Admission HPI: Yelitza Tim is a 34 year old female presenting with complaints of abdominal pain in the right lower quadrant and periumbilical region. Pain was associated with nausea and vomiting which seemed to increase the pain. She previously had similar pain approximately 6 months ago which resolved after vomiting. She denies fever or chills but does report a decreased appetite. There have been no changes in her bowel habits. Her past medical history is significant only for anxiety. She denies any previous abdominal surgeries. She presented to the emergency department and was noted to have an elevated WBC. CT abdomen and pelvis revealed a dilated appendix which traveled to the midline abdomen with inflammatory changes surrounding. There was no free air. There is a small collection of free fluid. Hospital course Patient was taken to the operating room for laparoscopic appendectomy later that afternoon on the day of admission. Patient tolerated procedure well was transferred to the PACU in stable condition and transferred to the [facility] floor for further observation. She tolerated the procedure well, diet was advanced. On postop day 1 patient was doing well, pain was well controlled she was tolerating diet and able to ambulate, felt ready to go home. At the time of discharge patient's abdominal exam was soft tender around the incision sites, dressings were intact without strike through. Patient was discharged in stable condition Time Attestation Discharge Coordination Time (in mins): 30 Quality: Safe Use of Opioids Does Pt have an Active Cancer Diagnosis on the Problem List?: No Quality: Stroke Does the patient have a stroke diagnosis?: No Physical Exam Vital Signs: Vital Signs: Last Vital Signs Temp 98.2 F 05/29/25 09:53 Pulse 71 05/29/25 09:53 Resp 14 05/29/25 09:53 BP 128/74 05/29/25 09:53 Pulse Ox 98 05/29/25 09:53 O2 Del Method Room Air 05/29/25 09:53 BMI result Body Mass Index 24.6 Const: General: comfortable, no acute distress, alert and awake Orientation/consciousness: patient oriented x3 Resp: Effort & Inspection: normal respiratory effort GI: Other: Dressings clean, dry, no evidence of bloody or purulent drainage noted on the external dressing. Inspection: No Abdominal wall edema and No distended Palpation (GI): Soft to palpation, Tenderness to palpation present (GI) (incisional ), no guarding and not rigid Percussion: Yes normal to percussion Neuro: General: patient oriented x3 DS: Data Data Completed and Pending Pending studies at discharge: Pending at discharge 05/28/25 15:34 Surgical [PTH] Routine Discharge Plan Discharge Anticipated Discharge Date/Time: 05/29/25 07:51 Patient Disposition: Home, Self-Care Discharge Diagnosis: acute appendicitis s/p laparoscopic appendectomy Referrals: Dilan Choi MD [Primary Care Provider, Pediatrics] - 1 Week Discharge Medications: New oxycodone 5 mg tablet 5 mg PO Q6H PRN (Reason: pain (scale score 7-10)) Qty: 16 0RF Rx Instructions: Partial Fill upon patient request. Continued sertraline 50 mg Tablet 75 mg PO BEDTIME Discharge Orders: Discharge Order (Routine); Ordered 05/29/25 Ordered By: Edmundo Parmar Diet: Advance to usual diet Activity on Discharge: No heavy lifting Stand Alone Forms: Patient Portal Discharge page, Work/School Release Print Language: Telugu Activity Restrictions/Additional Instructions: If your incision site is sore, you may apply ice to the area for short periods of time (no more than 20 minutes at a time, followed by 20 minutes off). You were prescribed oxycodone to assist with pain management as needed. You can additionally use OTC ibuprofen or acetaminophen as needed for pain. You can remove the dressings at home, they do not need to be redressed. Steri strips can remain in place and will likely fall on their own or in the shower. No heavy lifting >20 pounds No strenuous activity. Do not use creams, lotion, ointment on the incision sites You will follow up with Dr. Parmar in the office in 1 week, you can call the office to schedule the appointment Please reach out to the office or be seen at the emergency department if you develop: -Fever >101.5 -Increasing pain or swelling of the area -Increased bleeding from the incision site or the incision begins to separate -If you are concerned for incision site infection such as redness, warmth, discharge. Some yellow/pink tinged discharge is normal -You develop nausea or vomiting Care Plan Goals: return to baseline level of health Health Concerns: post op pain Plan of Treatment: follow up in the office in 1-2 weeks Assessment: patient doing well Patient Instructions: Laparoscopic Appendectomy (DC) Discharge Date/Time: 05/29/25 10:09
== END 2025-05-29 10:09 | disposition home or self-care (01) | DRG 233 ==
LOC: HO.ED 21:44 → HO.EDOVER 22:32 → HO.S3 05-28 16:27
PROVIDERS: Nurse Practitioner Family; Physician Assistant Medical; Admitting Provider Surgery; Emergency Provider Emergency Medicine; PCP Internal Medicine; Visit Provider Surgery
PROC: 0DTJ4ZZ Resection of Appendix, Percutaneous Endoscopic Approach (ICD-10-PCS; CPT 44970; principal; 2025-05-28 13:30)
DX: K35.33 Acute appendicitis with perforation, localized peritonitis, and gangrene, with abscess (principal)
CPT/HCPCS: 36415; 74177; 80053; 81001; 83690; 84702; 85007; 85025; 85027; 88304; 99285; J0131; J0696; J1100; J1836; J1885; J2003; J2250; J2270; J2405; J2543; J2704; J3010; Q9967

== ENCOUNTER → 2025-05-27 19:59 | Outpatient (BNV) | payer BC, SELFPAY | PROVIDERS: Emergency Provider Emergency Medicine; PCP Internal Medicine; Visit Provider Radiology Diagnostic Radiology | DX: K35.80 Unspecified acute appendicitis (principal) | CPT/HCPCS: 74177 ==

== ENCOUNTER → 2025-05-27 21:57 | Outpatient (BNV) | payer BC, SELFPAY | PROVIDERS: Admitting Provider Surgery; Emergency Provider Emergency Medicine; PCP Internal Medicine; Visit Provider Surgery | DX: K35.30 Acute appendicitis with localized peritonitis, without perforation or gangrene (principal) | CPT/HCPCS: 44970; 99222 ==